=== PATIENT | female | born 1950 | race Caucasian/White ===

== ENCOUNTER → 2017-01-21 | Outpatient (CLI) | payer OTHER ==
[~2017-01-21] MED LIST: ASPEC325 PO; ASPI-391 PO; FURO20TA PO; POTA10CA28 PO; WLLSR/150 PO
[2017-01-21 13:53] LABS: BLOOD UREA NITROGEN 29 mg/dl (7-18); BUN/CREATININE RATIO 22.5 (10-20); CALCIUM 8.8 mg/dl (8.5-10.1); CARBON DIOXIDE 27 mmol/L (21-32); CHLORIDE 105 mmol/L (98-107); CHOLESTEROL 203 mg/dl (0-200); GLUCOSE 83 mg/dl (70-99); SODIUM 139 mmol/L (136-145)
[2017-01-21 13:57] LABS: CHOLESTEROL/HDL RATIO 2.7; HDL CHOLESTEROL 76 mg/dl; TRIGLYCERIDES 57 mg/dl (0-150); VERY LOW DENSITY LIPOPROT CALC 11 mg/dl
== END | disposition home or self-care (01) ==
LOC: C.LABSPEC 12:27
PROVIDERS: ATTEND Internal Medicine
DX: Z00.00 Encounter for general adult medical examination without abnormal findings (principal); I10 Essential (primary) hypertension; R60.9 Edema, unspecified

== ENCOUNTER → 2017-04-04 | Outpatient (CLI) | payer OTHER ==
--- NOTE | 2017-04-04 13:54 | MAMMOGRAPHY REPORT ---
BILATERAL DIGITAL SCREENING MAMMOGRAM TOMOSYNTHESIS WITH CAD: 04/04/2017 CLINICAL HISTORY: Routine screening. TECHNIQUE: Breast tomosynthesis in addition to standard 2D mammography was performed. Current study was also evaluated with a Computer Aided Detection (CAD) system. COMPARISON: Comparison is made to exams dated: 02/18/2015 mammogram, 02/23/2016 mammogram, 02/26/2014 nancy mogram, 02/17/2014 mammogram, 02/04/2013 mammogram, and 01/31/2012 mammogram - [facility]. BREAST COMPOSITION: There are scattered areas of fibroglandular density in both breasts. FINDINGS: No suspicious masses, calcifications, or areas of architectural distortion are noted in ei ther breast. There has been no significant interval change compared to prior exams. Scattered bilate ral benign-appearing calcifications are not significantly changed. Oval circumscribed benign-appeari ng 2.5 cm mass in the left 12:00 breast is stable dating back to at least the 2007 exam. IMPRESSION: ACR BI-RADS CATEGORY 2: BENIGN There is no mammographic evidence of malignancy. A 1 year screening mammogram is recommended. The pa tient will receive written notification of the results. Approximately 10% of breast cancers are not detected with mammography. A negative mammographic report should not delay biopsy if a clinically suggestive mass is present. Kate Pavon M.D. ah/:04/04/2017 12:12:50 Civil Engineering Draftsperson: Rehana KERN)(M), [facility] letter sent: Normal 1/2 BI-RADS Code: ACR BI-RADS Category 2: Benign
== END | disposition home or self-care (01) ==
LOC: C.MAMM 10:53
PROVIDERS: ATTEND Internal Medicine
DX: Z12.31 Encounter for screening mammogram for malignant neoplasm of breast (principal)

== ENCOUNTER → 2017-07-22 | Outpatient (CLI) | payer OTHER ==
[2017-07-22 15:15] LABS: INFLUENZA B ANTIGEN Neg for Influ B (NEG)
== END | disposition home or self-care (01) ==
LOC: C.LABSPEC 14:33
PROVIDERS: ATTEND Internal Medicine
DX: B34.9 Viral infection, unspecified (principal)

== ENCOUNTER → 2017-08-26 | Outpatient (CLI) | payer OTHER ==
[2017-08-26 14:44] LABS: BLOOD UREA NITROGEN 16 mg/dl (7-18); CARBON DIOXIDE 28 mmol/L (21-32); CHOLESTEROL 232 mg/dl (0-200); CREATININE 1.31 mg/dl (0.60-1.20); GLUCOSE 95 mg/dl (70-99); POTASSIUM 3.7 mmol/L (3.5-5.1); SODIUM 138 mmol/L (136-145)
[2017-08-26 14:53] LABS: LDL CHOLESTEROL (DIRECT) 141 mg/dl
== END | disposition home or self-care (01) ==
LOC: C.LABSPEC 12:46
PROVIDERS: ATTEND Internal Medicine
DX: I10 Essential (primary) hypertension (principal); E78.5 Hyperlipidemia, unspecified

== ENCOUNTER → 2017-08-28 | Outpatient (CLI) | payer OTHER ==
[2017-08-30 18:00] LABS: FECAL OCCULT BLOOD #1 NEGATIVE (NEGATIVE); FECAL OCCULT BLOOD #2 NEGATIVE (NEGATIVE); FECAL OCCULT BLOOD #3 NEGATIVE (NEGATIVE)
== END | disposition home or self-care (01) ==
LOC: C.LABSPEC 15:58
PROVIDERS: ATTEND Internal Medicine
DX: Z12.11 Encounter for screening for malignant neoplasm of colon (principal)

== ENCOUNTER → 2018-01-10 | Outpatient (CLI) | payer OTHER ==
--- NOTE | 2018-01-10 14:48 | DIAGNOSTIC IMAGING REPORT ---
TRANSVAG-FEMALE PELVIS HISTORY: 67 years-old Female PELVIC MASS acute generalized pelvic pain with palpable pelvic mass. COMPARISON: None available TECHNIQUE: Multiple real-time sonogram images of the deep pelvic structures were obtained transabdominally and transvaginally assessing grayscale appearance and color flow FINDINGS: TRANSABDOMINAL: Anteflexed uterus measures 8.5 x 5.0 x 6.1 cm. TRANSVAGINAL: Ill-defined heterogeneous mostly isoechoic uterine mass within the mid uterine body measures 3.0 x 2.7 x 2.9 cm which appears be intramural and contains central shadowing calcifications. There is additional intramural leiomyoma measuring 1.7 x 1.9 x 1.8 cm about the mid uterine body. No definite 7 endometrial leiomyomas identified. Endometrium is obscured. Ovaries are not diagnostically visualized. Mild free pelvic fluid within the cul-de-sac. IMPRESSION: 1. Fibroid uterus with intramural leiomyomata as above. 2. Nonvisualization of the ovaries and endometrium. 3. Mild free pelvic fluid of unknown etiology. The above report was generated using voice recognition software. It may contain grammatical, syntax or spelling errors. Electronically signed by: Clem Miranda M.D. 01/10/2018 2:46 PM Dictated Date/Time: 01/10/2018 2:44 PM
== END | disposition home or self-care (01) ==
LOC: C.ULTR 13:51
PROVIDERS: ATTEND Internal Medicine
DX: D25.1 Intramural leiomyoma of uterus (principal)